=== PATIENT | female | born 1985 | race Caucasian/White ===

== ENCOUNTER 2020-07-13 12:55 | Inpatient (IN) ==
[2020-07-13] MEDS: LACTATED RINGERS 1,000 ML IV SCH (17:04)
[2020-07-13] MEDS ORDERED: ONDANSETRON 4 MG/2 ML VIAL IV PRN (17:16)
[2020-07-13] MEDS ORDERED: MEPERIDINE 50 MG/1 ML VIAL IV PRN (17:19)
[2020-07-13 17:28] LABS: Basophils % 0.3 % (0.0-0.8); Eosinophils # 0.1 10*3/uL (0.0-0.87); Eosinophils % 1.1 % (0.00-10.9); Hematocrit 35.3 VOL% (35.7-47.0); Hemoglobin 11.1 GM/DL (12.0-16.0); Immature Granulocytes % 0.9 %; Immature Granulocytes Absolute 0.11 #; Lymphocytes % 16.2 % (21.3-54.2); Mean Corpuscular HGB Conc 31.4 GM/DL (32-36); Mean Corpuscular Volume 84.9 FL (87-102); Mean Platelet Volume 10.1 FL (9.6-12.0); Monocytes % 4.4 % (1.7-12.7); Neutrophils % 77.1 % (38.7-73.9); Platelet Count 280 T/CUMM (130-400); Red Blood Count 4.16 MC/CUMM (3.8-5.5); Red Cell Distribution Width 16.2 % (9.3-17.3); White Blood Count 12.1 T/CUMM (4-12)
[2020-07-13 17:53] LABS: Alanine Aminotransferase 16 U/L (13-56); Albumin 2.6 G/DL (3.4-5.0); Alkaline Phosphatase 127 U/L (45-117); Aspartate Amino Transferase 9 U/L (0-37); Bilirubin,Total < 0.39 MG/DL (0.2-1.0); Blood Urea Nitrogen 8 MG/DL (7-18); Calcium 9.5 MG/DL (8.5-10.1); Carbon Dioxide 24 MMOL/L (21-32); Estimated Glom Filtration Rate 178 ML/MIN; Glucose 89 MG/DL (74-106); Osmolality,Calculated 266.1 MOS/KG (273-304); Potassium 3.6 MMOL/L (3.5-5.1); Sodium 135 MMOL/L (136-145); Total Protein 6.8 G/DL (6.4-8.2); Uric Acid 4.8 MG/DL (2.6-6.0)
[2020-07-13] MEDS: LABETALOL 100 MG TABLET PO SCH (21:20)
[2020-07-14] MEDS ORDERED: ACETAMINOPHEN 500 MG TABLET PO PRN (01:06)
[2020-07-14] MEDS: LACTATED RINGERS 1,000 ML IV SCH (01:15)
[2020-07-14] MEDS ORDERED: AMPICILLIN INJ 2,000 MG in SODIUM CHLORIDE 0.9% 100 ML IV ONE (04:00)
[2020-07-14] MEDS ORDERED: TRANEXAMIC ACID 1,000 MG/10 ML VIAL ONE (05:20)
[2020-07-14] MEDS ORDERED: miSOPROStoL 200 MCG TABLET ONE (05:20)
[2020-07-14] MEDS ORDERED: METHYLERGONOVINE 0.2 MG/1 ML AMP ONE (05:20)
[2020-07-14] MEDS ORDERED: CARBOPROST TROMETHAMINE 250 MCG/ML AMP IM ONE (05:21)
[2020-07-14] MEDS ORDERED: ePHEDrine 50 MG/ML VIAL IV PRN (05:26)
[2020-07-14] MEDS ORDERED: diphenhydrAMINE 50 MG/1 ML VIAL IV PRN ×2 (05:26)
[2020-07-14] MEDS ORDERED: PROMETHAZINE 25 MG/1 ML VIAL IM ONE (05:26)
[2020-07-14] MEDS ORDERED: FAMOTIDINE 20 MG/2 ML VIAL IV ONE (05:28)
[2020-07-14] MEDS ORDERED: CITRIC ACID/SODIUM CITRATE 30 ML UDCUP PO ONE (05:28)
[2020-07-14] MEDS ORDERED: ONDANSETRON 4 MG/2 ML VIAL ONE (07:16)
[2020-07-14 07:31] LABS: INR 0.9; PT Patient Result 10.3 SECS (10.5-12.0); Partial Thromboplastin Time 26.1 SECS (23.9-33.8)
[2020-07-14] MEDS ORDERED: OXYTOCIN/LR 30 UNIT/1,000 ML BAG IV ONE (07:36)
[2020-07-14] MEDS ORDERED: OXYTOCIN 10 UNIT/ML VIAL IM ONE (07:36)
[2020-07-14] MEDS ORDERED: PHENYLEPHRINE 1 MG/10 ML SYRINGE IV ONE (07:57)
[2020-07-14] MEDS ORDERED: BUPIVACAINE SPINAL 0.75% 2 ML AMP SPINAL ONE (07:57)
[2020-07-14] MEDS ORDERED: AMPICILLIN INJ 1,000 MG in SODIUM CHLORIDE 0.9% 100 ML IV SCH (08:00)
[2020-07-14 08:13] LABS: Cord Arterial Blood HCO3 29.4 MMOL/L
[2020-07-14 08:15] LABS: Cord Venous Blood HCO3 26.2 MMOL/L; Cord Venous Blood PCO2 55.4 MMHG; Cord Venous Blood PO2 25.9 MMHG
[2020-07-14] MEDS ORDERED: ACETAMINOPHEN INJ 1,000 MG/100 ML VIAL IV ONE (08:17)
[2020-07-14 08:49] LABS: Bilirubin,Urine Negative (Negative); Blood, Urine Negative (Negative); Glucose,Urine (UA) Negative (Negative); Ketones,Urine Negative (Negative); Mucus,Urine Occasional /LPF (Occasional); Nitrite,Urine Negative (Negative); Protein,Urine Negative; RBC,Urine <1 /HPF (0-4); Squamous Epithelial Cell,Urine Occasional /HPF (0-10); Urine Appearance CLEAR (Clear); Urine Color Yellow (Yellow); Urine Specific Gravity 1.021 (1.001-1.035); Urine Urobilinogen < 2.0 EU/DL (0.2-1.0)
[2020-07-14] MEDS ORDERED: SIMETHICONE CHEW 80 MG TABLET PO PRN (10:28)
[2020-07-14] MEDS ORDERED: OXYTOCIN/LR 20 UNIT/1,000 ML BAG IV ONE (10:28)
[2020-07-14] MEDS ORDERED: ACETAMINOPHEN 325 MG TABLET PO PRN (10:28)
[2020-07-14] MEDS ORDERED: ONDANSETRON 4 MG/2 ML VIAL IV PRN (10:28)
[2020-07-14] MEDS ORDERED: RHO(D) IMMUNE GLOBULIN 300 MCG SYRINGE IM ONE (10:28)
[2020-07-14] MEDS ORDERED: IBUPROFEN 800 MG TABLET PO PRN (10:28)
[2020-07-14] MEDS ORDERED: LACTATED RINGERS 1,000 ML IV SCH (10:30)
[2020-07-14] MEDS: KETOROLAC 30 MG/1 ML VIAL IV SCH ×3 (11:33→23:30)
[2020-07-14] MEDS: LABETALOL 100 MG TABLET PO SCH (13:46)
[2020-07-14 17:35] LABS: Basophils % 0.3 % (0.0-0.8); Eosinophils # 0.1 10*3/uL (0.0-0.87); Eosinophils % 0.8 % (0.00-10.9); Hematocrit 34.3 VOL% (35.7-47.0); Hemoglobin 10.9 GM/DL (12.0-16.0); Immature Granulocytes % 0.7 %; Immature Granulocytes Absolute 0.08 #; Lymphocytes # 1.7 10*3/uL (1.4-4.0); Lymphocytes % 15.4 % (21.3-54.2); Mean Corpuscular HGB Conc 31.8 GM/DL (32-36); Mean Corpuscular Volume 84.1 FL (87-102); Mean Platelet Volume 9.9 FL (9.6-12.0); Monocytes % 5.2 % (1.7-12.7); Neutrophils % 77.6 % (38.7-73.9); Platelet Count 250 T/CUMM (130-400); Red Blood Count 4.08 MC/CUMM (3.8-5.5); Red Cell Distribution Width 16.3 % (9.3-17.3); White Blood Count 10.8 T/CUMM (4-12)
[2020-07-14] MEDS: ACETAMINOPHEN 500 MG TABLET PO SCH (19:20)
[2020-07-15] MEDS: ACETAMINOPHEN 500 MG TABLET PO SCH (05:10)
[2020-07-15] MEDS: DOCUSATE SODIUM 100 MG CAPSULE PO SCH ×3 (05:10→21:31)
[2020-07-15 06:09] LABS: Basophils % 0.2 % (0.0-0.8); Eosinophils # 0.2 10*3/uL (0.0-0.87); Hematocrit 33.2 VOL% (35.7-47.0); Hemoglobin 10.3 GM/DL (12.0-16.0); Immature Granulocytes % 0.7 %; Immature Granulocytes Absolute 0.06 #; Lymphocytes # 1.5 10*3/uL (1.4-4.0); Lymphocytes % 17.4 % (21.3-54.2); Mean Corpuscular Volume 85.6 FL (87-102); Mean Platelet Volume 10.4 FL (9.6-12.0); Monocytes % 5.1 % (1.7-12.7); Neutrophils % 74.6 % (38.7-73.9); Platelet Count 238 T/CUMM (130-400); Red Blood Count 3.88 MC/CUMM (3.8-5.5); Red Cell Distribution Width 16.6 % (9.3-17.3); White Blood Count 8.7 T/CUMM (4-12)
[2020-07-15] MEDS ORDERED: METOCLOPRAMIDE 10 MG TABLET ONE (08:23)
[2020-07-15] MEDS: MULTIVITAMIN (PRENATAL) TABLET PO SCH (10:23)
[2020-07-15] MEDS: MAGNESIUM HYDROXIDE SUSP 30 ML UDCUP PO PRN (10:23)
[2020-07-15] MEDS ORDERED: METOCLOPRAMIDE 10 MG TABLET PO SCH (16:00)
[2020-07-16] MEDS: MULTIVITAMIN (PRENATAL) TABLET PO SCH (10:10)
[2020-07-16] MEDS: MAGNESIUM HYDROXIDE SUSP 30 ML UDCUP PO PRN (10:10)
[2020-07-16] MEDS: DOCUSATE SODIUM 100 MG CAPSULE PO SCH (10:10)
[2020-07-16 17:11] VITALS: BP 143/48
== END 2020-07-16 17:45 | disposition home or self-care (01) | DRG 788 ==
LOC: N.LDOUT 12:55 → N.LD 12:56 → N.OB 07-14 15:56
PROVIDERS: ADMIT Obstetrics & Gynecology; ATTEND Obstetrics & Gynecology
PROC: LDCSECT (ICD-10-PCS; 2020-07-14 07:30)